=== PATIENT | male | born 2000 | race Caucasian/White ===

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

== ENCOUNTER 2022-03-02 22:30 | Emergency (ER) | payer OTHER ==
[~2022-03-02] VITALS: Ht 188 cm; Wt 107.1 kg
[2022-03-02 22:31] VITALS: BP 156/68
[2022-03-02] MEDS ORDERED: GLUCAGON INJ 1MG VIAL IV STA (23:11)
[2022-03-02 23:43] LABS: BASO # 0.1 10^3/uL (0.0-0.2); BASO % 0.5 % (0.0-1.0); EOS # 0.3 10^3/uL (0.0-0.5); EOS % 2.7 % (0.0-3.0); HEMATOCRIT 45.9 % (42.0-52.0); HEMOGLOBIN 15.7 g/dl (13.5-17.5); LYMPH # 2.4 10^3/uL (1.5-5.0); MEAN CORPUSCULAR HEMOGLOBIN 30.7 pg (27.0-33.0); MEAN CORPUSCULAR HGB CONC 34.2 g/dl (32.0-36.5); MEAN CORPUSCULAR VOLUME 89.8 fl (80.0-96.0); MONO % 10.2 % (2.0-8.0); NEUTROPHILS # 5.7 10^3/uL (1.5-8.5); NEUTROPHILS % 60.4 % (36.0-66.0); PLATELET COUNT, AUTOMATED 226 10^3/uL (150-450); RED BLOOD COUNT 5.11 10^6/uL (4.30-6.10); WHITE BLOOD COUNT 9.4 10^3/uL (4.0-10.0)
[2022-03-03 00:13] LABS: BLOOD UREA NITROGEN 11 MG/DL (7-18); CALCIUM LEVEL 9.6 MG/DL (8.5-10.1); CARBON DIOXIDE LEVEL 27 MEQ/L (21-32); CHLORIDE LEVEL 110 MEQ/L (98-107); CREATININE FOR GFR 0.88 MG/DL (0.70-1.30); GLUCOSE, FASTING 94 MG/DL (70-100); SODIUM LEVEL 144 MEQ/L (136-145)
[2022-03-03 00:14] LABS: ALBUMIN 4.3 GM/DL (3.2-5.2); ALT/SGPT 34 U/L (12-78); BILIRUBIN,TOTAL 0.4 MG/DL (0.2-1.0); TOTAL PROTEIN 7.8 GM/DL (6.4-8.2)
[2022-03-03 00:45] LABS: RSV AMPLIFICATION NEGATIVE (NEGATIVE)
== END 2022-03-03 00:12 | disposition home or self-care (01) ==
LOC: M ED 22:30
DX: T18.120A Food in esophagus causing compression of trachea, initial encounter (principal)
CPT/HCPCS: 80053; 85025; 87631; 96374; 99284; J1610

== ENCOUNTER 2022-03-06 22:29 | Emergency (ER) | payer OTHER ==
[~2022-03-06] VITALS: Ht 188 cm; Wt 94.1 kg
[2022-03-06 22:32] VITALS: BP 141/67
[2022-03-07] MEDS ORDERED: PROT1TAB2 PO (19:42)
== END 2022-03-07 01:30 | disposition left against medical advice (07) ==
LOC: M ED 22:29
DX: Z53.21 Procedure and treatment not carried out due to patient leaving prior to being seen by health care provider (principal)

== ENCOUNTER 2022-03-07 13:57 | Emergency (ER) | payer OTHER ==
[~2022-03-07] VITALS: Ht 188 cm; Wt 108.2 kg
[2022-03-07] MEDS ORDERED: PANTOPRAZOLE 40MG TAB (PROTONIX) PO ONE (19:40)
[2022-03-07] MEDS ORDERED: PROT1TAB2 PO (19:42)
[2022-03-07 19:44] VITALS: BP 135/78
== END 2022-03-07 20:20 | disposition home or self-care (01) ==
LOC: M ED 13:57
DX: K30 Functional dyspepsia (principal)

== ENCOUNTER 2022-03-22 12:04 | Emergency (ER) | payer OTHER ==
[~2022-03-22] VITALS: Ht 185.4 cm; Wt 109.7 kg
[2022-03-22 12:04] VITALS: BP 133/81
[~2022-03-22 12:04] MED LIST: PROT1TAB2 PO
== END 2022-03-22 13:24 | disposition left against medical advice (07) ==
LOC: M ED 12:04
DX: Z53.21 Procedure and treatment not carried out due to patient leaving prior to being seen by health care provider (principal)

== ENCOUNTER 2022-07-05 09:28 | Emergency (ER) | payer OTHER ==
[~2022-07-05] VITALS: Ht 188 cm; Wt 103.7 kg
[2022-07-05 14:35] VITALS: BP 136/69
[2022-07-05 14:36] LABS: GC DNA AMPLIFICATION NEGATIVE (NEGATIVE)
== END 2022-07-05 14:55 | disposition home or self-care (01) ==
LOC: M ED 09:28
DX: N50.819 Testicular pain, unspecified (principal); K21.9 Gastro-esophageal reflux disease without esophagitis; F17.290 Nicotine dependence, other tobacco product, uncomplicated

== ENCOUNTER 2023-03-28 01:31 | Emergency (ER) | payer OTHER ==
[~2023-03-28] VITALS: Ht 188 cm; Wt 118.7 kg
[2023-03-28 03:27] LABS: GC DNA AMPLIFICATION NEGATIVE (NEGATIVE)
[2023-03-28 06:55] LABS: BASO # 0.1 10^3/uL (0.0-0.2); BASO % 0.6 % (0.0-1.0); EOS # 0.5 10^3/uL (0.0-0.5); EOS % 6.2 % (0.0-3.0); HEMATOCRIT 43.8 % (42.0-52.0); HEMOGLOBIN 14.5 g/dl (13.5-17.5); LYMPH # 3.1 10^3/uL (1.5-5.0); LYMPH % 38.3 % (24.0-44.0); MEAN CORPUSCULAR HEMOGLOBIN 30.3 pg (27.0-33.0); MEAN CORPUSCULAR HGB CONC 33.1 g/dl (32.0-36.5); MEAN CORPUSCULAR VOLUME 91.4 fl (80.0-96.0); MONO # 0.9 10^3/uL (0.0-0.8); MONO % 11.2 % (2.0-8.0); NEUTROPHILS # 3.5 10^3/uL (1.5-8.5); NEUTROPHILS % 43.4 % (36.0-66.0); PLATELET COUNT, AUTOMATED 193 10^3/uL (150-450); RED BLOOD COUNT 4.79 10^6/uL (4.30-6.10)
[2023-03-28 07:20] LABS: BLOOD UREA NITROGEN 16 MG/DL (9-23); CALCIUM LEVEL 8.8 MG/DL (8.5-10.1); CARBON DIOXIDE LEVEL 30 MMOL/L (20-31); CHLORIDE LEVEL 103 MMOL/L (98-107); CREATININE FOR GFR 0.93 MG/DL (0.70-1.30); GLOMERULAR FILTRATION RATE > 60.0 (>60); GLUCOSE, FASTING 80 MG/DL (60-100); POTASSIUM SERUM 4.3 MMOL/L (3.5-5.1); SODIUM LEVEL 139 MMOL/L (136-145)
[2023-03-28] MEDS ORDERED: FLOM0.4C39 PO (07:44)
[2023-03-28 07:53] VITALS: BP 137/74
== END 2023-03-28 08:12 | disposition home or self-care (01) ==
LOC: M ED 01:31
DX: N50.812 Left testicular pain (principal); N50.811 Right testicular pain; R39.11 Hesitancy of micturition; Z79.83 Long term (current) use of bisphosphonates